=== PATIENT | male | born 1960 | race African-American/Black ===

== ENCOUNTER → 2016-12-28 | Outpatient (CLI) | payer MEDICARE, OTHER ==
[2015-07-09 15:15] VITALS: BP 140/70
[~2016-12-28] MED LIST: ATOR10TA60 PO; CETI10TA22 PO; CHOL100013 PO; DOCU-27 PO; FLUO20TA11 PO; GLIM1TAB2 PO; IBUP-1060 PO; LISI-334 PO; OXYC-323 PO; SITA1TAB11 PO; VARE1TAB5 PO
--- NOTE | 2016-12-28 15:08 | RAD ---
Indication cough. PA and lateral views of the chest were obtained. Comparison is made to previous examination 07/28/2007. The lungs are clear. There is no pleural fluid or pneumothorax. Acute finding is not seen. A benign-appearing calcification is seen at the right lung base. There has not been a significant change in the appearance of the chest compared to the previous exam. The heart and pulmonary vessels appear unremarkable IMPRESSION: No acute finding. No significant change
== END | disposition home or self-care (01) ==
LOC: RAD 14:19
PROVIDERS: ATTEND Family Medicine
DX: J20.9 Acute bronchitis, unspecified (principal); R05 Cough
CPT/HCPCS: 71020

== ENCOUNTER → 2018-06-20 | Outpatient (CLI) | payer MEDICARE, OTHER ==
[2015-07-09 15:15] VITALS: BP 140/70
[~2018-06-20] MED LIST changes: +DOCU-109 PO; -DOCU-27 PO
--- NOTE | 2018-06-20 15:18 | KCIC ---
KNEE RIGHT 3V History: Right knee pain chronically.. Comparison: None are available Severe narrowing of the medial joint compartment. Marginal osteophytes. No evidence of acute fracture. No bone destruction. Mild degenerative spurring at the patellofemoral joint. Mature appearing ossicles at the tibial tubercle and distal patellar tendon, likely due to chronic tendinosis or old Ros-Schlatter's disease. IMPRESSION: Primary osteoarthritis. Electronically signed by: James Nugent MD (06/20/2018 3:14 PM) [id number]
== END | disposition home or self-care (01) ==
LOC: KCIC 14:44
PROVIDERS: ATTEND Family Medicine
DX: M17.11 Unilateral primary osteoarthritis, right knee (principal); M25.761 Osteophyte, right knee
CPT/HCPCS: 73562